=== PATIENT | female | born 2000 | race Two or more races ===

== ENCOUNTER 2023-04-13 11:57 | Emergency (ER) | payer BC ==
[~2023-04-13] VITALS: Ht 160 cm; Wt 59.0 kg
[2023-04-13] MEDS ORDERED: NORETHIND-ETH1 EAC1 (12:23)
== END 2023-04-13 13:42 | disposition home or self-care (01) ==
LOC: ER 11:58 → EMR PED 11:58
DX: S90.464A Insect bite (nonvenomous), right lesser toe(s), initial encounter (principal); W57.XXXA Bitten or stung by nonvenomous insect and other nonvenomous arthropods, initial encounter; Y93.89 Activity, other specified; Y92.89 Other specified places as the place of occurrence of the external cause